=== PATIENT | female | born 1990 | race American Indian/Alaskan Native ===

== ENCOUNTER 2017-06-16 17:31 | Emergency (ER) | payer OTHER ==
--- NOTE | 2017-06-16 18:07 | Emergency Department Report ---
Chief Complaint: Chest Pain Stated Complaint: CHEST PAIN - HPI History of Present Illness: This is a 26-year-old female nontoxic, well nourished in appearance, no acute signs of distress presents to the ED with c/o of chest pain and shortness of breath intermittent times one month. Patient denies any fever, chills, nausea, vomiting, headache, stiff neck, calf pain, calf tenderness. Denies recent travels or long car rides. Patient states she does not take oral contraceptives. - Exam Vital Signs: Vital Signs 06/16/17 17:58 Temperature 98.4 F Pulse Rate 76 Respiratory 22 Rate Blood Pressure 149/77 O2 Sat by Pulse 100 Oximetry Physical Exam: GENERAL: The patient is a well-developed, well-nourished female in no apparent distress. Patient is alert and acting appropriately for age. Alert and oriented 3, no apparent distress, normal gait, atraumatic. LUNGS: Clear to auscultation. Non labor breathing. No intercostal retractions. Symmetrical with respiration, no wheezing, no rales, or crackles. HEART: Regular rate and rhythm without murmur, rubs or gallops. No reproducible. S1, S2 present, regular rate and rhythm without murmur, no rubs, no gallops. MSE screening note: Focused history and physical exam performed. Due to findings the following was ordered: 1- This initial assessment/diagnostic orders/clinical plan/ treatment(s) is/are subject to change based on pt's health status, clinical progression and re- assessment by fellow clinical providers in the ED. Further treatment and workup at subsequent clinical provers discretion. Patient/guardians urged not to elope from ED as their condition may be serious if not clinically assessed and managed. 2-EKG, CBC, CMP, troponin, cardiac CK, UA, serum, chest x-ray ED Disposition for MSE Condition: Stable
[2017-06-16 18:23] LABS: Basophils % (Auto) 0.8 % (0.0-1.8); Hematocrit 38.2 % (30.3-42.9); Hemoglobin 11.8 gm/dl (10.1-14.3); Mean Corpuscular HGB Conc 31 % (30-34); Mean Corpuscular Volume 82 fl (79-97); Platelet Count 303 K/mm3 (140-440); Red Blood Count 4.67 M/mm3 (3.65-5.03); Red Cell Distribution Width 14.4 % (13.2-15.2); White Blood Count 6.8 K/mm3 (4.5-11.0)
[2017-06-16 18:33] LABS: Mean Corpuscular Hemoglobin 25 pg (28-32)
[2017-06-16 18:47] LABS: Creatine Kinase MB 1.6 ng/mL (0.0-4.0)
[2017-06-16 18:49] LABS: Alanine Aminotransferase 9 units/L (7-56); Albumin 4.2 g/dL (3.9-5); Albumin/Globulin Ratio 1.2 %; Alkaline Phosphatase 41 units/L (35-129); Anion Gap 20 mmol/L; BUN/Creatinine Ratio 19; Blood Urea Nitrogen 15 mg/dL (7-17); Calcium 9.5 mg/dL (8.4-10.2); Carbon Dioxide 22 mmol/L (22-30); Chloride 100.5 mmol/L (98-107); Creatine Kinase 68 units/L (30-135); Glucose 83 mg/dL (65-100); Potassium 4.1 mmol/L (3.6-5.0); Sodium 138 mmol/L (137-145); Total Protein 7.6 g/dL (6.3-8.2)
--- NOTE | 2017-06-16 20:46 | XRay Report ---
FINAL REPORT PROCEDURE: XR CHEST ROUTINE 2V TECHNIQUE: Two views of the chest are obtained HISTORY: cp COMPARISON: No prior studies are available for comparison. FINDINGS: The heart is normal in size. There is no focal infiltrate, pneumothorax or pleural effusion. IMPRESSION: No abnormalities are seen.
[2017-06-17] MEDS ORDERED: TORADOL IM ONE (02:45)
[2017-06-17] MEDS ORDERED: TYLENOL PO ONE (02:46)
--- NOTE | 2017-06-17 03:45 | Emergency Department Report ---
ED General Adult HPI - General Chief complaint: Chest Pain Stated complaint: CHEST PAIN Time Seen by Provider: 06/17/17 02:32 Source: patient Mode of arrival: Ambulatory Limitations: No Limitations - History of Present Illness Initial comments: Patient is a 26-year-old female no prescription and past medical history who presents with pleuritic chest pain. Patient states that specifically gone for 1 month her chest pains located to the left of her chest it is sharp and radiates to her shoulder blade she states it's a 5 out 10 taken a deep breath makes it worse and nothing makes it better. Patient denies having any nausea or vomiting shortness of breath any leg swelling or any fevers. Patient's O2 sat is 99% on room air Severity scale (0 -10): 10 - Related Data Previous Rx's Medication Instructions Recorded Last Taken Type Acetaminophen 500 mg PO Q6HR #30 tablet 06/17/17 Unknown Rx Naproxen 250 mg PO BID #20 tablet 06/17/17 Unknown Rx Allergies Allergy/AdvReac Type Severity Reaction Status Date / Time iodine Allergy Hives Verified 06/16/17 17:55 ED Review of Systems ROS: Stated complaint: CHEST PAIN Other details as noted in HPI Constitutional: denies: chills, fever Eyes: denies: eye pain, eye discharge, vision change ENT: denies: ear pain, throat pain Respiratory: denies: cough, shortness of breath, wheezing Cardiovascular: chest pain. denies: palpitations Endocrine: no symptoms reported Gastrointestinal: denies: abdominal pain, nausea, diarrhea Genitourinary: denies: urgency, dysuria, discharge Musculoskeletal: denies: back pain, joint swelling, arthralgia Skin: denies: rash, lesions Neurological: denies: headache, weakness, paresthesias Psychiatric: denies: anxiety, depression Hematological/Lymphatic: denies: easy bleeding, easy bruising ED Past Medical Hx - Past Medical History Previous Medical History?: No - Surgical History Past Surgical History?: Yes Additional Surgical History: Gastric sleeve 2014, ACL repair left knee - Social History Smoking Status: Never Smoker Substance Use Type: Non Opiate Pain - Medications Home Medications: Home Medications Medication Instructions Recorded Confirmed Last Taken Type Acetaminophen 500 mg PO Q6HR #30 tablet 06/17/17 Unknown Rx Naproxen 250 mg PO BID #20 tablet 06/17/17 Unknown Rx ED Physical Exam - General Limitations: No Limitations General appearance: alert, in no apparent distress - Head Head exam: Present: atraumatic, normocephalic - Eye Eye exam: Present: normal appearance - ENT ENT exam: Present: mucous membranes moist - Neck Neck exam: Present: normal inspection - Respiratory Respiratory exam: Present: normal lung sounds bilaterally. Absent: respiratory distress - Cardiovascular Cardiovascular Exam: Present: regular rate, normal rhythm. Absent: systolic murmur, diastolic murmur, rubs, gallop - GI/Abdominal GI/Abdominal exam: Present: soft, normal bowel sounds - Extremities Exam Extremities exam: Present: normal inspection - Back Exam Back exam: Present: normal inspection - Neurological Exam Neurological exam: Present: alert, oriented X3 - Psychiatric Psychiatric exam: Present: normal affect, normal mood - Skin Skin exam: Present: warm, dry, intact, normal color. Absent: rash ED Course Vital Signs 06/16/17 06/16/17 06/16/17 17:58 21:58 22:02 Temperature 98.4 F 98.3 F 98.3 F Pulse Rate 76 70 73 Respiratory 22 20 20 Rate Blood Pressure 149/77 156/93 132/75 Blood Pressure [Left] O2 Sat by Pulse 100 100 100 Oximetry 06/17/17 06/17/17 00:28 01:23 Temperature 99.0 F 98.5 F Pulse Rate 96 H 85 Respiratory 18 15 Rate Blood Pressure 158/93 Blood Pressure 122/59 [Left] O2 Sat by Pulse 100 100 Oximetry ED Medical Decision Making - Lab Data Result diagrams: 06/16/17 18:10 06/16/17 18:10 Lab Results 06/16/17 06/16/17 06/16/17 Range/Units 18:10 18:10 18:10 WBC 6.8 (4.5-11.0) K/mm3 RBC 4.67 (3.65-5.03) M/mm3 Hgb 11.8 (10.1-14.3) gm/dl Hct 38.2 (30.3-42.9) % MCV 82 (79-97) fl MCH 25 L (28-32) pg MCHC 31 (30-34) % RDW 14.4 (13.2-15.2) % Plt Count 303 (140-440) K/mm3 Lymph % (Auto) 42.0 H (13.4-35.0) % [place] % (Auto) 10.3 H (0.0-7.3) % Eos % (Auto) 2.0 (0.0-4.3) % Baso % (Auto) 0.8 (0.0-1.8) % Lymph # 2.8 (1.2-5.4) K/mm3 [place] # 0.7 (0.0-0.8) K/mm3 Eos # 0.1 (0.0-0.4) K/mm3 Baso # 0.1 (0.0-0.1) K/mm3 Seg Neutrophils % 44.9 (40.0-70.0) % Seg Neutrophils # 3.0 (1.8-7.7) K/mm3 Sodium 138 (137-145) mmol/L Potassium 4.1 (3.6-5.0) mmol/L Chloride 100.5 (98-107) mmol/L Carbon Dioxide 22 (22-30) mmol/L Anion Gap 20 mmol/L BUN 15 (7-17) mg/dL Creatinine 0.8 (0.7-1.2) mg/dL Estimated GFR > 60 ml/min BUN/Creatinine Ratio 19 % Glucose 83 (65-100) mg/dL Calcium 9.5 (8.4-10.2) mg/dL Total Bilirubin 0.40 (0.1-1.2) mg/dL AST 16 (5-40) units/L ALT 9 (7-56) units/L Alkaline Phosphatase 41 (35-129) units/L Total Creatine Kinase 68 (30-135) units/L CK-MB (CK-2) 1.6 (0.0-4.0) ng/mL CK-MB (CK-2) Rel Index 2.3 (0-4) Troponin T < 0.010 (0.00-0.029) ng/mL Total Protein 7.6 (6.3-8.2) g/dL Albumin 4.2 (3.9-5) g/dL Albumin/Globulin Ratio 1.2 % HCG, Qual Negative (Negative) - EKG Data -: EKG Interpreted by Tx - EKG Data 06/17/17 04:04 EKG shows normal sinus rhythm no ST segment elevation or T-wave inversion. - Radiology Data Radiology results: report reviewed, image reviewed Chest x-ray: Shows no acute cardiopulmonary disease - Medical Decision Making Chief medical diagnosis: Pleurisy Differential medical diagnosis: Pneumothorax, GERD, sore chest wall muscle I will get CBC, CMP, EKG, troponin, chest x-ray Ill give patient an intra muscular Toradol and oral acetaminophenPatient PERCS out and is unlikely to have pulmonary embolism. She is feeling better after Toradol and acetaminophen also patient home with follow-up with PCP. Patient agrees with plan additional verbal discharge instructions were given. Critical care attestation.: If time is entered above; I have spent that time in minutes in the direct care of this critically ill patient, excluding procedure time. ED Disposition Clinical Impression: Pleuritic chest pain, Costochondritis Disposition: - TO HOME OR SELFCARE Is pt being admited?: No Does the pt Need Aspirin: No Condition: Stable Instructions: Costochondritis (ED), Chest Pain (ED) Prescriptions: Acetaminophen 500 mg PO Q6HR #30 tablet Naproxen 250 mg PO BID #20 tablet Referrals: CRISPIN ARTEAGA MD [Staff Physician] - 3-5 Days Forms: Work/School Release Form(ED)
[2017-06-17 04:14] VITALS: BP 111/50
== END 2017-06-17 04:20 | disposition home or self-care (01) ==
LOC: EDSEX → ED 17:31
DX: M94.0 Chondrocostal junction syndrome [Tietze] (principal); R07.81 Pleurodynia; Z88.8 Allergy status to other drugs, medicaments and biological substances
CPT/HCPCS: 36415; 71020; 80053; 82550; 82553; 84484; 84703; 85025; 93005; 93010; 96372; 99284; J1885